=== PATIENT | male | born 1955 | race Caucasian/White ===

== ENCOUNTER 2019-04-05 07:21 | Day surgery (SDC) | payer OTHER ==
--- NOTE | 2019-04-01 10:11 | HP ---
PREOPERATIVE HISTORY AND PHYSICAL: DATE OF SURGERY/ADMISSION: 04/05/19 DATE OF OFFICE VISIT/ENCOUNTER: 03/31/19 ATTENDING SURGEON: Lavinia Brody MD* (dictated by SHUN Rodrigues). PROCEDURE: Closed reduction, percutaneous fixation, right small finger phalanx. HISTORY OF PRESENT ILLNESS: This is a 63-year-old male who suffered a worker's comp injury on 03/26/19. 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 He was working with his floor machine and the lid of the floor machine fell and crushed his right little finger. He suffered an abrasion on the dorsal aspect of the finger and he went to [facility] for further evaluation. X-rays there showed a displaced fracture of the proximal phalanx. He was splinted and referred to Dr. Broyd for further evaluation and treatment considerations. The patient denies numbness and tingling. He denies any other injury. After review of x-rays and clinical evaluation, the patient consented to proceed with a closed reduction in the office, this was performed by Dr. Brody. Postreduction x-ray showed only minimal improvement in the alignment of the fracture fragments. Subsequently, Dr. Brody has recommended surgical intervention in the form of closed reduction and percutaneous pinning of the right small finger and the patient has consented to proceed. PAST MEDICAL HISTORY: 1. Hypercholesterolemia. 2. Hypertension. 3. GERD. 4. Peoples's esophagus. 5. History of prostate cancer. PAST SURGICAL HISTORY: 1. Prostatectomy in 2007 with sling placement. 2. Right knee meniscectomy in 2009. 3. Cholecystectomy in 2011. CURRENT MEDICATIONS: 1. Atorvastatin calcium 10 mg daily. 2. Lisinopril 10 mg daily. 3. Omeprazole 40 mg daily. ALLERGIES: LATEX. No known drug allergies. FAMILY MEDICAL HISTORY: Diabetes, hypertension, and stroke. 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 He is a former smoker, he quit 30 years ago. Prior to that he smoked 2 to 3 packs per day for 25 years. He denies current recreational drug use. He drinks alcohol on rare occasions. REVIEW OF SYSTEMS: Negative for general, cephalic, cardiovascular, respiratory , GI, , other musculoskeletal, integumentary, endocrine, neurologic, and hematologic symptoms. Infectious Diseases: Negative for MRSA, hepatitis C, HIV. PHYSICAL EXAMINATION GENERAL: Well-developed, well-nourished 63-year-old male in no acute distress. VITAL SIGNS: Height 5 feet 5 inches, weight 173 pounds, pulse rate 63, blood pressure 158/102. HEENT: Normocephalic and atraumatic. Pupils are equal, round, and reactive to light and accommodation. Extraocular movements are intact. NECK: Supple. No palpable lymph nodes. Throat is clear. PULMONARY: Lungs are clear to auscultation bilaterally. No wheezes, rales, or rhonchi. CARDIOVASCULAR: Regular rate and rhythm. S1 and S2. No murmurs, rubs, or gallops. No edema. ABDOMEN: Positive bowel sounds, soft and nontender. NEUROLOGIC: Alert and oriented x3. Cranial nerves II through XII are intact. Sensation is intact to light touch. MUSCULOSKELETAL: On exam of his right hand, he has an abrasion on the dorsal aspect of the small finger overlying the proximal phalanx. There is moderate swelling. He has a significant amount of ecchymosis in the palm of his hand. He could not flex the finger. He has full extension. Because of the swelling, there is no obvious deformity. Tenderness to palpation along the proximal phalanx. IMAGING STUDIES: X-rays AP, lateral, and oblique of the right little finger show a significantly displaced fracture at the base of the proximal phalanx with a marked amount of angulation on the lateral x-ray. IMPRESSION: Right little finger proximal phalanx fracture. PLAN: The patient is scheduled to undergo a closed reduction and percutaneous pinning of the right small finger phalanx on 04/05/[address] Brody. He will return to the office 10 days postop for followup and suture removal. A prescription for [place] was e-scribed to the patient's pharmacy for postoperative pain management. SHUN RODRIGUES [id number]/[facility] #: [id number] MTDD
[~2019-04-05 07:21] MED LIST: Buffered Lidocaine 1% SYRIN* 1 ML/SYRINGE INTRADERM ONE; Famotidine IV* 10 MG/ML 2 ML (20 mg) IV ONE; Lactated Ringers 1000 ML Bag* 1,000 ML IV SCH
[2019-04-05] MEDS ORDERED: Famotidine IV* 10 MG/ML 2 ML (20 mg) ONE (07:22)
[2019-04-05] MEDS ORDERED: ceFAZolin 2 GM PREMIX in ORs 2 GM/50 ML BAG ONE (07:26)
[2019-04-05] MEDS ORDERED: Midazolam* 1 MG/ML 5 ML VIAL (5 MG) ONE (07:35)
[2019-04-05] MEDS ORDERED: fentaNYL* 50 MCG/ML 2 ML VIAL (100 MCG VIAL) ONE (07:35)
[2019-04-05] MEDS ORDERED: Ondansetron INJ* 2 MG/ML VIAL ONE (08:18)
[2019-04-05] MEDS ORDERED: Propofol* 10 MG/ML 20 ML BTL ONE (08:18)
[2019-04-05] MEDS ORDERED: Ketorolac INJ* 30 MG/ML 1 ML VIAL ONE (08:18)
[2019-04-05] MEDS ORDERED: Lidocaine 2% PF * 5 ML VIAL ONE (08:18)
[2019-04-05] MEDS ORDERED: Acetaminophen TAB* 325 MG PO PRN (08:37)
[2019-04-05] MEDS ORDERED: Naloxone* 0.4 MG/ML 1 ML VIAL IV PRN (08:37)
[2019-04-05] MEDS ORDERED: oxyCODONE TAB* 5 MG TAB PO PRN (08:37)
[2019-04-05 09:03] VITALS: BP 153/83
[2019-04-05] MEDS ORDERED: Lidocaine 1% INJ* 10 MG/ML 30 ML SDV ONE (09:57)
--- NOTE | 2019-04-05 16:06 | OP ---
DATE OF OPERATION: 04/05/19 [facility] DATE OF : 53 SURGEON: Lavinia Brody MD HISTOPATHOLOGIST: SHUN Rodrigues ANESTHESIA: Local MAC. PRE-OP DIAGNOSIS: Right small finger proximal phalanx fracture, displaced. POST-OP DIAGNOSIS: Right small finger proximal phalanx fracture, displaced. OPERATIVE PROCEDURE: Closed reduction and pinning, right small finger proximal phalanx fracture. ESTIMATED BLOOD LOSS: Zero. TOURNIQUET TIME: About 30 minutes. INDICATIONS FOR PROCEDURE: Marcio is a 63-year-old male who injured his right little finger at work. He was using a floor machine. The lid of the floor machine crushed his finger and broke the proximal phalanx. Attempted closed reduction was not successful. He presented for closed reduction and pinning. DESCRIPTION OF PROCEDURE: The patient was brought to the operating room, was given a sedation anesthetic and a digital block with 10 cc of 1% plain lidocaine. The skin of his right hand and forearm was prepped and draped in the usual sterile fashion. The hand and forearm were exsanguinated and the tourniquet elevated to 250 mmHg. The fracture was manipulated and reduced and then secured with two 0.045 inch K-wires driven through the base of the proximal phalanx and up the medullary canal of the distal fragment. The position of the hardware and fracture fragments was checked on the C-arm in the AP and lateral views and clinically the finger was well aligned. The x-rays showed the hardware to be well placed. The pins were bent and cut, dressed with pin caps, Xeroform, Webril, 4x4, and a volar splint. The patient tolerated the procedure well and was brought to the recovery room in good condition. [id number]/[facility] #: [id number] [facility]ENTERHernesto
== END 2019-04-05 09:22 | disposition home or self-care (01) ==
LOC: OREAST 07:21
PROVIDERS: ATTEND Orthopaedic Surgery
DX: S62.646A Nondisplaced fracture of proximal phalanx of right little finger, initial encounter for closed fracture (principal); W31.89XA Contact with other specified machinery, initial encounter; Y93.89 Activity, other specified; Y92.214 College as the place of occurrence of the external cause; Y99.0 Civilian activity done for income or pay; I10 Essential (primary) hypertension; Z85.46 Personal history of malignant neoplasm of prostate; E78.00 Pure hypercholesterolemia, unspecified; Z87.891 Personal history of nicotine dependence; G47.33 Obstructive sleep apnea (adult) (pediatric); K21.0 Gastro-esophageal reflux disease with esophagitis; K22.70 Barrett's esophagus without dysplasia
CPT/HCPCS: 76000; C1776; J0690; J1885; J2250; J2405; J2704; J3010